=== PATIENT | male | born 1955 | race Two or more races ===

== ENCOUNTER 2020-11-01 09:42 | Outpatient (CLI) | payer OTHER ==
[~2020-11-01 09:42] MED LIST: CEFADROXIL500 MG PO; LISINOPRIL2.5 MG; LOPRESSOR25 MG
== END 2020-11-01 09:52 | disposition home or self-care (01) ==
LOC: RAD 09:42
DX: M54.2 Cervicalgia (principal)

== ENCOUNTER 2022-10-19 09:36 | Outpatient (CLI) | payer OTHER | END 2022-10-19 09:39 | disposition home or self-care (01) | LOC: LAB 09:36 | PROVIDERS: ATTEND Urology | DX: N41.1 Chronic prostatitis (principal) ==